=== PATIENT | male | born 2005 | race Caucasian/White ===

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

== ENCOUNTER 2025-03-08 19:15 | Emergency (ER) | payer OTHER ==
[~2025-03-08] VITALS: Ht 175.3 cm; Wt 87.7 kg
[~2025-03-08 19:15] MED LIST: HYDR-3364 PO; LEXA1TAB PO; TRAZ-252 PO
[2025-03-08 20:18] LABS: BASO # 0.1 10^3/uL (0.0-0.2); BASO % 0.5 % (0.0-1.0); EOS # 0.0 10^3/uL (0.0-0.5); EOS % 0.3 % (0.0-3.0); LYMPH # 2.0 10^3/uL (1.5-5.0); LYMPH % 14.9 % (24.0-44.0); MONO # 1.0 10^3/uL (0.0-0.8); MONO % 7.6 % (2.0-8.0); NEUTROPHILS # 10.3 10^3/uL (1.5-8.5); NEUTROPHILS % 76.4 % (36.0-66.0); PLATELET COUNT, AUTOMATED 292 10^3/uL (150-450)
[2025-03-08 20:42] LABS: ETHYL ALCOHOL (ETHANOL) 0.008 % (0.000-0.010)
[2025-03-08 20:44] LABS: ALT/SGPT 32 U/L (7.0-40); AST/SGOT 43 U/L (<34); CALCIUM LEVEL 9.4 MG/DL (8.5-10.1); CARBON DIOXIDE LEVEL 23 MMOL/L (20-31); CHLORIDE LEVEL 105 MMOL/L (98-107); CREATININE FOR GFR 1.03 MG/DL (0.70-1.30); GLOMERULAR FILTRATION RATE > 90.0 (>60); POTASSIUM SERUM 4.0 MMOL/L (3.5-5.1); SODIUM LEVEL 141 MMOL/L (136-145)
[2025-03-08] MEDS: TETANUS/DIPHTH/ACEL. PERTUSSIS 0.5 ML SYR IM.IMMUN ONE (20:45)
[2025-03-08] MEDS: ACETAMINOPHEN *IV* 1,000 MG in IV 1 EA IV ONE (21:02)
[2025-03-08] MEDS: KETOROLAC 30 MG/ML 1 ML VIAL IV ONE (21:02)
[2025-03-08] MEDS ORDERED: TRAZ-252 PO (21:07)
[2025-03-08] MEDS ORDERED: LEXA1TAB PO (21:07)
[2025-03-08] MEDS ORDERED: HYDR-3363 PO (21:07)
[2025-03-08] MEDS ORDERED: VITA100093 PO (21:07)
[2025-03-08] MEDS ORDERED: HOME MED LIST COMPLETE! XX SCH (21:10)
[2025-03-08 21:36] VITALS: O2SAT 96
[2025-03-08 21:41] VITALS: BP 127/61; TEMP 98.7
== END 2025-03-08 21:47 | disposition home or self-care (01) ==
LOC: M ED 19:15
DX: S40.012A Contusion of left shoulder, initial encounter (principal); S06.0X0A Concussion without loss of consciousness, initial encounter; Y92.9 Unspecified place or not applicable; Y93.9 Activity, unspecified; Y99.9 Unspecified external cause status; V29.91XA Electric (assisted) bicycle rider (driver) (passenger) injured in unspecified traffic accident, initial encounter
CPT/HCPCS: 70450; 70486; 71045; 72125; 72190; 73030; 73564; 80047; 80053; 82077; 83690; 85025; 96365; 96375; 99284; J0131; J1885

== ENCOUNTER 2025-03-11 10:27 | Emergency (ER) | payer OTHER ==
[~2025-03-11] VITALS: Ht 175.3 cm; Wt 87.2 kg
[~2025-03-11 10:27] MED LIST changes: +HYDR-3363 PO; +VITA100093 PO
[2025-03-11 11:56] LABS: AMPHETAMINES LEVEL URINE NEGATIVE (NEGATIVE); BENZODIAZEPINES URINE NEGATIVE (NEGATIVE)
[2025-03-11 11:57] LABS: BARBITURATES URINE NEGATIVE (NEGATIVE); CANNABINOIDS URINE NEGATIVE (NEGATIVE); COCAINE METABOLITE URINE NEGATIVE (NEGATIVE); METHADONE URINE NEGATIVE (NEGATIVE); OPIATES URINE NEGATIVE (NEGATIVE); PHENCYCLIDINE URINE NEGATIVE (NEGATIVE)
[2025-03-11 14:00] VITALS: BP 113/58; O2SAT 97
[2025-03-11 15:23] VITALS: TEMP 98.5
== END 2025-03-11 15:32 | disposition home or self-care (01) ==
LOC: M ED 10:27
DX: S06.0X0A Concussion without loss of consciousness, initial encounter (principal); Y92.9 Unspecified place or not applicable; Y93.9 Activity, unspecified; Y99.9 Unspecified external cause status; V26.0 Motorcycle driver injured in collision with other nonmotor vehicle in nontraffic accident; Z79.899 Other long term (current) drug therapy

== ENCOUNTER 2025-05-13 15:53 | Inpatient (IN) | payer OTHER ==
[~2025-05-13] VITALS: Ht 175.3 cm; Wt 91.0 kg
[2025-05-13 16:20] LABS: PLATELET COUNT, AUTOMATED 259 10^3/uL (150-450)
[2025-05-13 16:47] LABS: AMPHETAMINES LEVEL URINE NEGATIVE (NEGATIVE); BARBITURATES URINE NEGATIVE (NEGATIVE); BENZODIAZEPINES URINE NEGATIVE (NEGATIVE); COCAINE METABOLITE URINE NEGATIVE (NEGATIVE); METHADONE URINE NEGATIVE (NEGATIVE)
[2025-05-13 16:48] LABS: CANNABINOIDS URINE NEGATIVE (NEGATIVE); OPIATES URINE NEGATIVE (NEGATIVE); PHENCYCLIDINE URINE NEGATIVE (NEGATIVE)
[2025-05-13 16:50] LABS: ETHYL ALCOHOL (ETHANOL) 0.004 % (0.000-0.010)
[2025-05-13 16:51] LABS: ALT/SGPT 28 U/L (7.0-40); AST/SGOT 22 U/L (<34); CALCIUM LEVEL 9.0 MG/DL (8.5-10.1); CARBON DIOXIDE LEVEL 27 MMOL/L (20-31); CHLORIDE LEVEL 107 MMOL/L (98-107); CREATININE FOR GFR 0.86 MG/DL (0.70-1.30); GLOMERULAR FILTRATION RATE > 90.0 (>60); POTASSIUM SERUM 3.8 MMOL/L (3.5-5.1); SALICYLATE LEVEL < 3.0 MG/DL (<30); SODIUM LEVEL 143 MMOL/L (136-145)
[2025-05-13] MEDS ORDERED: IBUPROFEN 400 MG TAB PO PRN (18:35)
[2025-05-13] MEDS ORDERED: ACETAMINOPHEN 325 MG TAB PO PRN (18:35)
[2025-05-13] MEDS ORDERED: MOM 30 ML SUSPENSION UDC PO PRN (18:35)
[2025-05-13] MEDS ORDERED: MAALOX 30 ML SUSP *UDC PO PRN (18:35)
[2025-05-13] MEDS ORDERED: HOME MED LIST COMPLETE! XX SCH (18:40)
[2025-05-13 21:06] VITALS: BP 120/59; TEMP 97.4; O2SAT 96
[2025-05-14 06:42] VITALS: BP 129/60; TEMP 97.8; O2SAT 99
[2025-05-14] MEDS: ESCITALOPRAM OXALATE 10 MG TABLET PO SCH (09:47)
[2025-05-14 18:46] VITALS: BP 158/87; TEMP 98.6; O2SAT 96
[2025-05-15 06:29] VITALS: BP 114/55; TEMP 98.8; O2SAT 98
[2025-05-15 15:17] VITALS: BP 138/70; TEMP 98.8; O2SAT 96
[2025-05-15] MEDS: traZODone 50 MG TAB PO PRN (20:47)
[2025-05-16 06:44] VITALS: BP 113/67; TEMP 97.6; O2SAT 98
[2025-05-17 07:02] VITALS: BP 122/61; TEMP 97.5; O2SAT 95
[2025-05-17] MEDS ORDERED: BUSP10TA PO (08:45)
[2025-05-17] MEDS ORDERED: TRAZ-252 PO (08:45)
[2025-05-17] MEDS ORDERED: LEXA1TAB PO (08:45)
== END 2025-05-17 10:43 | disposition home or self-care (01) | DRG 885 ==
LOC: EDBD 15:53 → M ED 15:53 → M ED INP 18:31 → M PSY 21:02
PROVIDERS: ADMIT Psychiatry & Neurology Neurology; ATTEND General Practice
DX: F33.2 Major depressive disorder, recurrent severe without psychotic features (principal); R45.851 Suicidal ideations; F41.1 Generalized anxiety disorder; Z56.6 Other physical and mental strain related to work; Z79.899 Other long term (current) drug therapy; Z91.51 Personal history of suicidal behavior; F17.200 Nicotine dependence, unspecified, uncomplicated